=== PATIENT | female | born 1960 | race Caucasian/White ===

== ENCOUNTER → 2023-10-23 12:44 | Outpatient (REF) | payer OTHER, SELFPAY | LOC: WDC 12:44 | PROVIDERS: ATTENDING PHYSICIAN Family Medicine Geriatric Medicine; FAMILY PHYSICIAN Family Medicine | DX: Z12.31 Encounter for screening mammogram for malignant neoplasm of breast (principal); Z85.3 Personal history of malignant neoplasm of breast; C50.211 Malignant neoplasm of upper-inner quadrant of right female breast; Z17.0 Estrogen receptor positive status [ER+] | CPT/HCPCS: 77063; 77067 ==

== ENCOUNTER → 2023-11-16 07:54 | Outpatient (REF) | payer OTHER, SELFPAY | LOC: RAD 07:54 | PROVIDERS: ATTENDING PHYSICIAN Physician Assistant; FAMILY PHYSICIAN Family Medicine | DX: Z86.718 Personal history of other venous thrombosis and embolism (principal) | CPT/HCPCS: 93970 ==

== ENCOUNTER 2023-12-03 06:21 | Inpatient (IN) | payer OTHER, SELFPAY ==
--- NOTE | 2023-10-28 12:15 | CM ---
Addendum entered by Sabra Anderson 11/17/23 10:44:
Spoke again with patient. She has obtained a raised toilet seat, hip kit and firm cushion. She will need PT to issue her a walker for home use after surgery.
Original Note:
Patient is scheduled for an elective L THR on 12/03/23. Spoke with patient prior to surgery via telephone. Introduced role of Orthopedic Navigator. Patient reports that she lives with her and adult son in a two story home. There are three
steps to enter and a flight of steps to the second floor. There is a powder room on the entry level electrical engineer. She requires assistance with putting on her left sock but otherwise functions independently. She uses a cane. She has no other DME and has never had
VN services. PCP is Carolynn Templeton.
Discussed orthopedic program and post surgical plans. Reviewed anticipated length of stay and that goal is for her to return home at discharge. Also reviewed outpatient PT. Patient is in agreement with tentative plan and will go directly to
outpatient PT at [facility], [place]. She will have support from her when she goes home.
Patient will complete online education.
Plan: Orthopedic Navigator will remain available to assist with the care of patient and will reassess discharge needs after surgery.
[2023-11-10 09:43] LABS: Hematocrit 39.3 % (37.0-47.0); Hemoglobin 12.8 g/dL (12.0-16.0); Mean Corp Hgb Conc. 32.6 g/dL (33.0-37.0); Mean Corpuscular Hgb 29.8 pg (27.0-31.0); Mean Corpuscular Volume 91.4 fL (81.0-99.0); Mean Platelet Volume 11.7 fL (7.4-10.4); Platelet Count 263 10^3/uL (130-400); Red Cell Dist. Width 12.6 % (11.5-14.5); White Blood Cell Count 6.1 10^3/uL (4.8-10.8)
[2023-11-10 10:04] VITALS: BMI 46.0
[2023-11-10 10:26] LABS: ALT (SGPT) 24 U/L (0-35); AST (SGOT) 28 U/L (14-36); Albumin 4.4 g/dl (3.5-5.0); Alkaline Phosphatase 82 U/L (38-126); Blood Urea Nitrogen 17 mg/dl (7-17); Carbon Dioxide 27 mmol/L (22-30); Chloride 102 mmol/L (98-107); Estimated Creatinine Clearance 122 ml/min; Glucose 94 mg/dl (70-99); Potassium 4.5 mmol/L (3.5-5.1); Sodium 139 mmol/L (135-145); Total Bilirubin 0.5 mg/dl (0.2-1.3); Total Protein 7.8 g/dl (6.3-8.2); eGFR > 60.00
[2023-11-10 11:15] LABS: Hepatitis C Antibody Negative (Negative)
[2023-11-10 11:28] LABS: Glycohemoglobin (HgbA1c) 5.5 % (4.0-5.6)
[2023-11-10 14:57] VITALS: BMI 46.0
[2023-12-03 10:18] VITALS: BP 124/62
[2023-12-03] MEDS: TYLENOL 650 MG PO ×2 (10:35→20:35)
[2023-12-03] MEDS: CELEBREX 200 MG PO (10:36)
[2023-12-03] MEDS: NORMOSOL-R 1000 IV ×2 (10:36→16:30)
[2023-12-03 10:43] VITALS: BMI 46.0
--- NOTE | 2023-12-03 14:21 | W.PN.UPDATE ---
Update Note
Progress Note Update
L hip OA s/p L NEO w/ Dr Freitas 12/03/23
DVT prophylaxis - resumption of home Eliquis, b/l venous foot pumps
Nonocclusive R superficial femoral vein DVT, 02/2020, in the setting of cancer and infection; on chronic Eliquis - resume Eliquis as stated above
- Promote frequent and early ambulation as tolerated
- Plasma flow devices HIGHLY encouraged for d/c use
Ambulatory dysfunction - on fall precautions
Chemotherapy-induced peripheral neuropathy - continue Lyrica
Hypercholesterolemia, diet controlled
Diverticulosis
Lumbar degenerative disc disease
Right breast cancer, status post right lumpectomy, 08/2019, chemotherapy, and radiation; on Anastrozole
Overactive bladder with stress incontinence
Increased intra-ocular pressure without glaucoma
Osteopenia
Morbid obesity, BMI 46.0
[2023-12-03 15:05] VITALS: BP 124/62
[2023-12-03] MEDS: DILAUDID 0.5 MG IV ×2 (15:20→15:25)
[2023-12-03 15:39] VITALS: BMI 46.0
[2023-12-03] MEDS: DILAUDID 0.25 MG IV ×2 (15:42→16:01)
[2023-12-03] MEDS: ROXICODONE 5 MG PO ×2 (16:27→20:57)
[2023-12-03 16:45] VITALS: BP 138/81
[2023-12-03 17:11] VITALS: BP 146/74
--- NOTE | 2023-12-03 17:55 | OR.RPT ---
Operative Report
Operative Report
Orthopaedic Surgery Operative Note
DATE OF OPERATION: 12/03/2023
PREOPERATIVE DIAGNOSES: Osteoarthritis, left hip
POSTOPERATIVE DIAGNOSES: Same
OPERATION PERFORMED: Left total hip arthroplasty (86377 with 22 modifier).
SURGEON: Alex Freitas MD
STORAGE SPECIALIST: Juan Lopez PA-C who helped with patient and limb positioning and retraction
ANESTHESIA: Spinal
COMPLICATIONS: None.
ESTIMATED BLOOD LOSS: 200 mL.
DRAINS: None
SPECIMEN: None
FINDINGS: Advanced articular cartilage wear on the femoral head and acetabulum.
IMPLANTS:
Biomet G7 Acetabular Shell, cluster hole, size 50
Biomet G7 Highly Crosslinked PE Liner, neutral
Amber Acetabular bone screw, 6.5mm x2
Amber M/L Taper femoral stem, size 12.5 with standard neck length and standard offset
Biolox Ceramic Head, size 36mm +0
INDICATIONS: The patient presented to my office with debilitating left hip pain due to osteoarthritis. We reviewed the natural history of this problem, as well as the risks, benefits, and alternatives of various treatment options. The patient
exhausted all nonoperative treatment options and wished to proceed with hip replacement surgery. The patient understood the risks which included, but were not limited to, bleeding, infection, failure to relieve pain, more pain than preop, damage to
blood vessels and nerves, need for reoperation, mechanical failure of the implants, wound healing problems, stiffness, instability, blood clot, pulmonary embolism, myocardial infarction, pneumonia, arrhythmia, CVA, and . The patient accepted
these risks and wished to proceed. All questions were answered, and informed consent was obtained.
PROCEDURE IN DETAIL: The patient was identified in the preoperative holding area. The left hip was identified as the operative site. The patient was taken in the operating room and transferred to the operative table. Spinal anesthesia was
performed. IV antibiotics and tranexamic acid were administered. The patient was placed in the lateral position with Stulberg hip positioners. Axillary roll was placed. The down leg was well padded. All bony prominences were well padded. The
operative limb was prepped and draped in the usual sterile fashion.
Time out was performed. A posterolateral approach to the hip was used. The skin incision was centered over the greater trochanter. This was taken down sharply through subcutaneous tissues. Meticulous hemostasis was achieved throughout the case with
electrocautery. We split the fascia swati in line with skin incision. I split the gluteus beena bluntly. We cauterized all crossing vessels as we split it. I palpated the sciatic nerve and made sure it was well posterior in the operative field. It
was protected throughout the case.
I performed a partial bursectomy to identify the short external rotators. The gluteus medius and minimus were identified and retracted anteriorly. I incised the piriformis tendon and conjoint tendon at their insertions. These were tagged for later
repair. I then performed a trapezoidal capsulotomy. The edges were tagged for later repair. I referenced the cut edge of the capsular flap to 2 fixed points on the greater trochanter for assistance with recreation of limb length and offset. I then
dislocated the hip posteriorly. I performed a femoral neck osteotomy approximately 5 mm above the lesser trochanter, as per preoperative templating. Distance from neck cut to center of head was 32.5mm. The femoral head measured 45 mm in outer
diameter. I placed a curve hohmann retractor over the anterior lip of the acetabulum between the labrum and the anterior hip capsule. A second retractor was placed inferiorly just distal to the transverse acetabular ligament. Circumferential view of
the acetabulum was achieved. I incised the labrum and pulvinar with electrocautery. I started with a 45 mm reamer and reamed down to the medial wall. I then sequentially reamed up to a 49mm reamer. This gave a nice bed of bleeding bone with
excellent column support anteriorly and posteriorly. I impacted the acetabular shell in approximately 40 degrees of abduction and 20 degrees of anteversion. I matched the anteversion of the transverse acetabular ligament. I also made sure that the
anterior rim of the socket was not proud of the anterior wall to minimize the chance of iliopsoas tendinitis. I confirmed the cup was well-seated. I placed 2 ileal screws in the posterior superior quadrant. I then impacted a neutral liner and
confirmed it was well seated with the locking mechanism.
On the femoral side, I use a box osteotome to open the proximal starting point. I found the canal with a Charnley awl and a lateralizing reamer. I then used the Amber M/L taper broaches sequentially to prepare the femoral canal. The size 12.5 came
to a stop at the desired level and had excellent axial and rotational stability. We trialed with a trial ball head. The hip was taken through a complete range of motion. It was noted to be stable in extension without impingement. It was stable in
the position of sleep and in flexion with internal rotation. The limb length and offset were checked compared to the capsular flap and was appropriate. The measured length between the neck cut and center of the femoral head was 35mm.
I removed the trials. I impacted the femoral implant to match the [place] version. It had excellent axial and rotational stability. Trial ball head was placed, and I reduced the hip and took the hip through a complete range of motion. There was no
impingement in external rotation and extension. Position of sleep was stable. At 90 degrees of flexion and slight adduction, the hip could be internally rotated to 90 degrees with no subluxation. I palpated the sciatic nerve, which was tension free
and unharmed. Based on our capsular flap measurement, we had restored the offset and leg length. The trial ball head was removed, and the final ball head was impacted onto a clean and dry Porter taper. The hip was reduced.
A dilute betadine soak was performed for approximately 3 minutes, and then the hip was copiously irrigated. I repaired the capsule, piriformis, and conjoint tendon with #2 Ethibond to drill holes in the greater trochanter. Local anesthetic was
injected. The fascia swati was closed with #1 PDS in running fashion. The subcutaneous tissues were closed with 2-0 PDS in running fashion. The skin was reapproximated with 3-0 Monocryl subcuticular suture. I placed a Prineo dressing followed by a
Mepilex Ag dressing. The patient awoke from anesthesia without difficulty. Sponge and instrument counts were correct x2 at the end of the case.
I was present and participated in the entire procedure. I checked leg length at the ankles after transfer on the bed which was equal. The patient was sent to the recovery room in stable condition.
Of note, 22 modifier was added due to BMI >45kg/m2 which required 20 additional minutes for positioning, exposure, and implanting the components.
Francisco Javier Freitas MD
--- NOTE | 2023-12-03 18:00 | PTCARENOTE ---
pt admitted to room 210 from the PACU at 1705. pt arrived awake and alert. admission database and assessment completed as documented. pt oriented to room, bed controls, call priest and plan of care with verbalized understanding. remains due to
void. pt educated on requiring assistance to get out of bed. will observe.
[2023-12-03] MEDS: TYLENOL PO (18:10)
[2023-12-03] MEDS: ANCEF 5 IV (20:33)
[2023-12-03] MEDS: VITAMIN D3 (cholecalciferol) 50 MCG PO (20:33)
[2023-12-03] MEDS: ARIMIDEX 1 MG PO (20:33)
[2023-12-03] MEDS: COLACE 100 MG PO (20:34)
[2023-12-03] MEDS: BACTROBAN 2% OINTMENT 1 APPLIC NASAL (20:34)
[2023-12-03] MEDS: SENOKOT 17.1999999999999993 MG PO (20:35)
[2023-12-03] MEDS: LYRICA 100 MG PO (20:35)
[2023-12-03] MEDS: DECADRON 4 MG PO (20:35)
[2023-12-03] MEDS: ELIQUIS 2.5 MG PO (20:35)
[2023-12-03 21:00] VITALS: BP 123/59
[2023-12-03] MEDS: PEPCID 20 MG PO (22:56)
[2023-12-03] MEDS: XALATAN OPHTHALMIC SOLUTION 1 DROP BOTH EYES (22:57)
[2023-12-03 23:00] VITALS: BP 123/59
[2023-12-04] MEDS: TYLENOL PO (01:05)
[2023-12-04] MEDS: ANCEF 5 IV (03:02)
[2023-12-04 03:03] VITALS: BP 112/63
[2023-12-04] MEDS: TYLENOL 650 MG PO ×2 (03:03→09:15)
[2023-12-04] MEDS: ROXICODONE 5 MG PO ×2 (03:13→09:28)
[2023-12-04 07:46] VITALS: BP 144/72
--- NOTE | 2023-12-04 08:34 | CM ---
Addendum entered by Sabra Anderson 12/04/23 09:46:
Patient did well in therapy. She has no concerns about going home.
Original Note:
Reviewed chart and held rounds with PT, OT and nursing. Patient admitted as planned for elective L THR. Met with patient at bedside. Confirmed information previously obtained for assessment. Also discussed discharge plans. The plan is for patient to
return home at discharge. She will have support from her when she goes home. Patient will go directly to outpatient PT and will go to [facility]. She has an appointment scheduled for Thursday, 12/06.
Patient has a hip kit, cane, raised toilet seat and firm cushion. She will need a rolling walker issued for home use; script obtained and given to PT.
She will use [facility] pharmacy for discharge prescriptions.
Discharge plans were reviewed with patient's on 12/02.
[2023-12-04] MEDS: COLACE 100 MG PO (09:15)
[2023-12-04] MEDS: LYRICA 100 MG PO (09:15)
[2023-12-04] MEDS: DECADRON 4 MG PO (09:15)
[2023-12-04] MEDS: ELIQUIS 2.5 MG PO (09:15)
[2023-12-04] MEDS: ARIMIDEX 1 MG PO (09:15)
[2023-12-04] MEDS: VITAMIN D3 (cholecalciferol) 50 MCG PO (09:15)
[2023-12-04] MEDS: SENOKOT 17.1999999999999993 MG PO (09:15)
[2023-12-04] MEDS: BACTROBAN 2% OINTMENT 1 APPLIC NASAL (09:15)
--- NOTE | 2023-12-04 09:27 | W.PN.ORTHO ---
Today's Communication / Plan
-
D/c today since clinically stable.
Assessment
.
Distal Motor Intact: Yes
Dressing:
Clean, dry and intact.
Assessment:
L hip OA s/p Ivett valdes/ Dr Freitas 12/03/23
DVT prophylaxis - resumption of home Eliquis, b/l venous foot pumps
Nonocclusive R superficial femoral vein DVT, 02/2020, in the setting of cancer and infection; on chronic Eliquis - resume Eliquis as stated above
- Promote frequent and early ambulation as tolerated
- Plasma flow devices HIGHLY encouraged for d/c use
Ambulatory dysfunction - on fall precautions
Chemotherapy-induced peripheral neuropathy - continue Lyrica
Hypercholesterolemia, diet controlled
Diverticulosis
Lumbar degenerative disc disease
Right breast cancer, status post right lumpectomy, 08/2019, chemotherapy, and radiation; on Anastrozole
Overactive bladder with stress incontinence
Increased intra-ocular pressure without glaucoma
Osteopenia
Morbid obesity, BMI 46.0
Plan
.
Surgery / Date: Ivett valdes/ Dr Freitas 12/03/23
DVT Prophylaxis: Other (Eliquis )
Activity:
Out of bed.
PT/OT
Discharge Plan: Home w/ Outpatient PT
Subjective
.
.:
Patient resting comfortably this AM.
L hip pain minimal and currently well tolerated.
Denies any new significant complaints.
Did well w/ PT and OT.
Eager for d/c today.
Vital Signs and Labs
.
Vital Signs and Labs:
Lab Results
11/10/23 08:30
11/10/23 08:30
Temp Pulse Resp BP Pulse Ox
97.5 F 67 16 144/72 94
12/04/23 07:46 12/04/23 07:46 12/04/23 07:46 12/04/23 07:46 12/04/23 07:46
Non-invasive Hgb result: 12.7
Physical Exam
-
HEENT: No pallor, cyanosis, or jaundice. Throat clear.
NECK: Supple. No JVD.
RESPIRATORY: Lungs clear to auscultation.
CVS: S1, S2 normal. RRR.�
ABDOMEN: Soft, non-tender. No distension. Morbidly obese.
EXTREMITIES: Strength equal, no calf pain with palpation/dorsiflexion. Calves soft.
MOBILE SERVICE RV TECHNICIAN: AOx3. No focal deficits. budget assistant grossly intact
--- NOTE | 2023-12-04 09:41 | W.DS.TRANS ---
DC Summary - Monomer Recovery Supervisor
-
Discharge Instructions:
Sleep Apnea Risk Low
Discharge Diagnosis/Procedures L hip OA s/p L NEO w/ Dr Freitas 12/03/23
Diet Regular
Activity As tolerated,With Walker
Driving Restrictions Not until seen by your Dr
Bathing Restrictions OK to Shower
Other Services PT
Wound Care Leave dressing on until seen by surgeon's office
for follow-up in 2 weeks.
Instructions:
Stand-Alone Forms: Total Hip/Knee Replacement D/C
Changes to Home Medications: Yes
Discharge Medications:
DC Medications w/original date entered in [facility]
anastrozole 1 mg tablet 1 mg PO DAILY breast cancer 03/08/20
latanoprost 0.005 % eye drops 1 drp BOTH EYES HS elevated intraocular pressure 03/08/20
cholecalciferol (vitamin D3) 50 mcg (2,000 unit) capsule (Vitamin D3) 50 mcg PO DAILY Supplement 10/18/20
tirzepatide (weight loss) 2.5 mg/0.5 mL subcutaneous pen injector (Zepbound) 2.5 mg SC FR weight loss 11/04/23
mupirocin 2 % topical ointment 1 applic intranasal BID #1 tube 11/10/23
acetaminophen 500 mg tablet (Tylenol Extra Strength) 1,000 mg (2 x 500 mg) PO Q6H pain #0 tabs 12/04/23
apixaban 2.5 mg tablet (Eliquis) 2.5 mg PO BID #30 tabs 12/04/23
dexamethasone 4 mg tablet 4 mg PO BID #5 tabs 12/04/23
docusate sodium 100 mg capsule 100 mg PO BID #30 caps 12/04/23
famotidine 20 mg tablet 20 mg PO HS #30 tabs 12/04/23
ondansetron HCl 4 mg tablet 4 mg PO Q6H PRN nausea and vomiting #30 tabs 12/04/23
oxycodone 5 mg tablet 5 - 10 mg (1 - 2 x 5 mg) PO Q6H PRN moderate-severe pain #30 tabs 12/04/23
pregabalin 100 mg capsule (Lyrica) 100 mg PO BID neuropathy #0 caps 12/04/23
sennosides 8.6 mg tablet (Senna Laxative) 17.2 mg (2 x 8.6 mg) PO BID #30 tabs 12/04/23
Home Medication Changes
acetaminophen 500 mg tablet (Tylenol Extra Strength) 1,000 mg (2 x 500 mg) PO Q6H pain #0 tabs 12/04/23
dexamethasone 4 mg tablet 4 mg PO BID #5 tabs 12/04/23
docusate sodium 100 mg capsule 100 mg PO BID #30 caps 12/04/23
famotidine 20 mg tablet 20 mg PO HS #30 tabs 12/04/23
ondansetron HCl 4 mg tablet 4 mg PO Q6H PRN nausea and vomiting #30 tabs 12/04/23
oxycodone 5 mg tablet 5 - 10 mg (1 - 2 x 5 mg) PO Q6H PRN moderate-severe pain #30 tabs 12/04/23
sennosides 8.6 mg tablet (Senna Laxative) 17.2 mg (2 x 8.6 mg) PO BID #30 tabs 12/04/23
Pending Results: No
== END 2023-12-04 11:02 | disposition home or self-care (01) | DRG 470 ==
LOC: 2 SOUTH 06:21
PROVIDERS: ADMITTING PHYSICIAN Orthopaedic Surgery; FAMILY PHYSICIAN Family Medicine
PROC: 0SRB04Z Replacement of Left Hip Joint with Ceramic on Polyethylene Synthetic Substitute, Open Approach (ICD-10-PCS; 2023-12-03)
DX: M16.12 Unilateral primary osteoarthritis, left hip (principal); Z68.42 Body mass index [BMI] 45.0-49.9, adult; E66.01 Morbid (severe) obesity due to excess calories; Z85.3 Personal history of malignant neoplasm of breast
CPT/HCPCS: 36415; 73502; 80053; 83036; 85027; 86803; 87070; 93005; 97110; 97116; 97162; 97166; 97530; 97535; C1713; C1776

== ENCOUNTER → 2024-07-20 14:01 | Outpatient (REF) | payer MEDICARE, SELFPAY | LOC: WDC 14:01 | PROVIDERS: ATTENDING PHYSICIAN Surgery; FAMILY PHYSICIAN Family Medicine | DX: N61.1 Abscess of the breast and nipple (principal); C50.411 Malignant neoplasm of upper-outer quadrant of right female breast; N63.12 Unspecified lump in the right breast, upper inner quadrant | CPT/HCPCS: 76642 ==

== ENCOUNTER → 2024-07-22 13:24 | Outpatient (REF) | payer MEDICARE, SELFPAY ==
[2024-07-22 13:42] VITALS: BP 121/64; BP_SYST 84
[2024-07-22 14:57] VITALS: BP 135/71; BP_SYST 78
== END ==
LOC: RADI 13:24
PROVIDERS: ATTENDING PHYSICIAN Surgery
DX: N61.1 Abscess of the breast and nipple (principal)
CPT/HCPCS: 10030; 87070; 87147; 87205; C1729; C1769

== ENCOUNTER → 2024-10-19 12:46 | Outpatient (REF) | payer MEDICARE, SELFPAY | LOC: RAD 12:46 | PROVIDERS: ATTENDING PHYSICIAN Internal Medicine Hematology & Oncology; FAMILY PHYSICIAN Family Medicine | DX: C50.211 Malignant neoplasm of upper-inner quadrant of right female breast (principal); Z78.0 Asymptomatic menopausal state; M85.88 Other specified disorders of bone density and structure, other site | CPT/HCPCS: 77080 ==

== ENCOUNTER → 2024-10-25 13:30 | Outpatient (REF) | payer MEDICARE, SELFPAY | LOC: WDC 13:30 | PROVIDERS: ATTENDING PHYSICIAN Family Medicine Geriatric Medicine; FAMILY PHYSICIAN Family Medicine | DX: Z12.31 Encounter for screening mammogram for malignant neoplasm of breast (principal); Z12.39 Encounter for other screening for malignant neoplasm of breast; Z85.3 Personal history of malignant neoplasm of breast; C50.211 Malignant neoplasm of upper-inner quadrant of right female breast; Z17.0 Estrogen receptor positive status [ER+] | CPT/HCPCS: 77063; 77067 ==

== ENCOUNTER 2025-01-19 06:24 | Day surgery (SDC) | payer MEDICARE, SELFPAY | END 2025-01-19 15:48 | disposition home or self-care (01) | LOC: GI 06:24 | PROVIDERS: ATTENDING PHYSICIAN Internal Medicine; FAMILY PHYSICIAN Family Medicine | DX: Z12.11 Encounter for screening for malignant neoplasm of colon (principal); D12.3 Benign neoplasm of transverse colon; D12.0 Benign neoplasm of cecum; K63.5 Polyp of colon | CPT/HCPCS: 45385; 45380; 45381; 88305 ==